=== PATIENT | male | born 1975 | race American Indian/Alaskan Native ===

== ENCOUNTER 2018-11-30 22:19 | Inpatient (IN) | payer MEDICAID ==
[~2018-11-30] VITALS: Ht 172.7 cm; Wt 95.0 kg
[~2018-11-30 22:19] MED LIST: ALBUAER3 IN; IPRIH INH
[2018-11-30] MEDS ORDERED: IPRATROPIUM BROM 0.5 MG/2.5ML INH SOL HHN ONE (22:45)
[2018-11-30] MEDS ORDERED: ALBUTEROL SULF 2.5 MG/0.5ML(0.5%) NEB SOLN HHN ONE (22:45)
[2018-11-30] MEDS ORDERED: methylPREDNISolone SOD SUCC 125 MG/2 ML VL IV ONE (22:45)
[2018-11-30 23:02] LABS: Basophils # (auto) 0.1 uL; Basophils % (auto) 0.6 % (0.0-2.0); Eosinophils # (auto) 0.5 uL; Eosinophils % (auto) 5.4 % (0.0-7.0); Hematocrit 45.4 % (41.0-53.0); Hemoglobin 16.1 g/dL (13.5-17.5); Lymphocytes # (auto) 2.7 uL; Lymphocytes % (auto) 29.6 % (10.0-50.0); Mean Corpuscular Hemoglobin 31.7 pg (28.0-32.0); Mean Corpuscular Hgb Conc. 35.6 g/dL (32.0-36.0); Monocytes # (auto) 0.7 uL; Neutrophils # (auto) 5.2 uL; Neutrophils % (auto) 56.4 % (37.0-80.0); Nucleated Red Blood Cells % 0.3 %; Platelet Count (auto) 241 10^3/uL (140-450); Red Cell Distribution Width 13.4 % (11.8-14.3); White Blood Cell 9.1 10^3/uL (4.4-10.8)
[2018-11-30 23:22] LABS: Albumin 3.6 g/dL (3.4-5.0); Calcium 8.6 mg/dL (8.5-10.1)
[2018-11-30 23:35] LABS: Bilirubin, Total 0.3 mg/dL (0.2-1.0)
[2018-12-01] VITALS (9 sets, daily range): BP systolic 106–149; BP diastolic 24–99
[2018-12-01] MEDS ORDERED: IPRATROPIUM BROM 0.5 MG/2.5ML INH SOL NEB ONE (00:15)
[2018-12-01] MEDS ORDERED: ALBUTEROL SULF 2.5 MG/0.5ML(0.5%) NEB SOLN NEB ONE (00:15)
[2018-12-01] MEDS ORDERED: MORPHINE SULF INJ 2 MG/ML SYRINGE 1ML IV PRN (02:45)
[2018-12-01] MEDS ORDERED: TEMAZEPAM 15 MG CAP PO PRN (02:45)
[2018-12-01] MEDS ORDERED: ACETAMINOPHEN 325 MG TAB PO PRN (02:45)
[2018-12-01] MEDS ORDERED: NITROGLYCERIN 0.4 MG SL TAB SL PRN (02:45)
[2018-12-01] MEDS ORDERED: ONDANSETRON HCL 4 MG/2 ML VIAL IV PRN (02:45)
[2018-12-01] MEDS: BUDESONIDE (INHALATION) 0.5 MG/2 ML NEB NEB SCH ×2 (06:54→18:46)
[2018-12-01] MEDS: ALBUTEROL SULF 2.5 MG/0.5ML(0.5%) NEB SOLN NEB SCH ×3 (06:54→18:47)
[2018-12-01] MEDS: IPRATROPIUM BROM 0.5 MG/2.5ML INH SOL NEB SCH ×3 (06:54→18:46)
--- NOTE | 2018-12-01 07:01 | NUR ---
PT TAKEN OFF BIPAP AFTER BREATHING TX. PLACED PT ON 2LNC, SPO2 97%. PT STATES HIS BREATHING IS "MUCH BETTER.". NO S/S OF RESPIRATORY DISTRESS. PT AWARE TO HAVE RT PAGED IF SOB OCCURS OR HE FEELS THE NEED TO GO ON BIPAP.
--- NOTE | 2018-12-01 07:35 | NUR ---
Opening Shift Note Assumed care of patient, awake and alert. No S/S of distress/SOB or pain. Patient currently on BiPAP FiO2 of 40%. Bed in lowest locked position, side rails up x2, call light within reach. Instructed on POC and to call for assist PRN, will continue to monitor for changes Q1hr and PRN.
--- NOTE | 2018-12-01 08:10 | NUR ---
[employer] Patient sets hardy Xie. Addendum: 12/02/18 at 1257 by LILLIAM BALLESTEROS RN RN Hardy Strong
[2018-12-01] MEDS ORDERED: methylPREDNISolone SOD SUCC 125 MG/2 ML VL IV SCH (10:00)
[2018-12-01] MEDS ORDERED: PNEUMOCOCCAL VACC POLYS 25 MCG/0.5 ML VIAL IM ONE (10:00)
[2018-12-01] MEDS: FAMOTIDINE 20 MG TAB PO SCH ×2 (10:33→22:43)
[2018-12-01] MEDS ORDERED: MORPHINE SULFATE 4 MG/ML SYR/VIAL IV ONE (14:00)
[2018-12-01] MEDS: methylPREDNISolone SOD SUCC 125 MG/2 ML VL IV SCH ×2 (15:25→22:00)
--- NOTE | 2018-12-01 19:45 | NUR ---
Assumed care of patient who is A&O x4. Currently on 2lpm via nc with expiratory wheezes throughout bilaterally. HOB elevated 45 degrees. Patient reports SOB, but "not as bad as yesterday". Patient is able to ambulate independently without the use of assistive devices. Bed is in low locked position with side rails up x2. Encouraged to call for assistance when needed. Will continue to monitor PRN.
--- NOTE | 2018-12-01 22:30 | NUR ---
Rounds Patient is resting in bed on left side. NC is off patient and lying in the bed. NC replaced, patient denies pain at this time. Scheduled medications administered as ordered. Encouraged to call for assistance when needed. Patient verbalizes understanding. WIll continue to monitor PRN.
[2018-12-01] MEDS: DOXYCYCLINE 100 MG TAB/CAP PO SCH (22:43)
--- NOTE | 2018-12-02 | NUR ---
Rounds Patient is sleeping in bed on left side. Bedside o2 in place at 2lpm. No distress noted. respirations are even, noted snoring. Will continue to monitor PRN.
[2018-12-02] MEDS: IPRATROPIUM BROM 0.5 MG/2.5ML INH SOL NEB SCH ×4 (00:12→19:13)
[2018-12-02] MEDS: ALBUTEROL SULF 2.5 MG/0.5ML(0.5%) NEB SOLN NEB SCH ×4 (00:12→19:13)
--- NOTE | 2018-12-02 02:12 | NUR ---
Rounds Patient is sleeping. NC in place O2 @ 2lpm. No distress noted. Patient continues to snore. Level of HOB increased. Will continue to monitor PRN.
--- NOTE | 2018-12-02 05:01 | NUR ---
Rounds Patient resting in bed with HOB elevated and eyes closed. Respirations are even and nonlabored. No distress noted. denies pain at this time. Will continue to monitor PRN.
[2018-12-02 05:15] VITALS: BP 151/83
[2018-12-02] MEDS: methylPREDNISolone SOD SUCC 125 MG/2 ML VL IV SCH ×3 (05:47→22:13)
[2018-12-02] MEDS: BUDESONIDE (INHALATION) 0.5 MG/2 ML NEB NEB SCH ×2 (05:49→19:14)
[2018-12-02 06:51] LABS: Basophils # (auto) 0 uL; Eosinophils # (auto) 0 uL; Hematocrit 49.3 % (41.0-53.0); Hemoglobin 16.6 g/dL (13.5-17.5); Lymphocytes # (auto) 0.7 uL; Lymphocytes % (auto) 3.6 % (10.0-50.0); Mean Corpuscular Hemoglobin 31.1 pg (28.0-32.0); Mean Corpuscular Hgb Conc. 33.7 g/dL (32.0-36.0); Mean Corpuscular Volume 92.2 fL (80.0-100.0); Monocytes # (auto) 0.4 uL; Monocytes % (auto) 2.1 % (0.0-12.0); Neutrophils # (auto) 17.3 uL; Neutrophils % (auto) 94.3 % (37.0-80.0); Nucleated Red Blood Cells % 0.2 %; Platelet Count (auto) 253 10^3/uL (140-450); Red Blood Cells 5.34 10^6/uL (4.5-5.90); Red Cell Distribution Width 13.7 % (11.8-14.3); White Blood Cell 18.4 10^3/uL (4.4-10.8)
[2018-12-02 07:02] LABS: Potassium 4.3 mmol/L (3.5-5.1)
[2018-12-02 07:07] LABS: BUN/Creatinine Ratio 17.2; Calcium 8.5 mg/dL (8.5-10.1)
--- NOTE | 2018-12-02 07:08 | NUR ---
Care endorsed to Day shift RN. Patient is stable with no s/s of distress at this time.
--- NOTE | 2018-12-02 07:55 | NUR ---
Opening Shift Note: Assumed care of patient, asleep in bed. HOB elevated. NC in place, 2 lpm. No S/S of distress/SOB or pain. Bed in lowest locked position, side rails up x2, call light within reach. Will continue to monitor for changes Q1hr and PRN.
[2018-12-02 09:00] VITALS: BP 144/93
[2018-12-02] MEDS: DOXYCYCLINE 100 MG TAB/CAP PO SCH ×2 (09:26→22:13)
[2018-12-02] MEDS: FAMOTIDINE 20 MG TAB PO SCH ×2 (09:26→22:13)
[2018-12-02 13:06] VITALS: BP 129/77
[2018-12-02 17:00] VITALS: BP 145/98
--- NOTE | 2018-12-02 19:30 | NUR ---
Opening Shift Note Assumed care of patient, awake and alert x4. Family member noted at the bedside. Patient denies pain at this time. Patient is on 3L NC, no S/S of distress noted at this time. Instructed on plan of care and to call for assistance as needed. Bed is locked in lowest position, side rails x 2 are up, and call light is within reach.
[2018-12-02 22:05] VITALS: BP 151/92
[2018-12-03] MEDS: IPRATROPIUM BROM 0.5 MG/2.5ML INH SOL NEB SCH ×4 (00:33→19:32)
[2018-12-03] MEDS: ALBUTEROL SULF 2.5 MG/0.5ML(0.5%) NEB SOLN NEB SCH ×4 (00:33→19:32)
--- NOTE | 2018-12-03 04:50 | NUR ---
RESPIRATORY THERAPIST PAGED RE: BREATHING TREATMENT Respiratory therapist paged regarding breathing.
[2018-12-03] MEDS: methylPREDNISolone SOD SUCC 125 MG/2 ML VL IV SCH (04:56)
--- NOTE | 2018-12-03 04:56 | NUR ---
RT AT BEDSIDE Respiratory therapist at bedside.
[2018-12-03 05:21] VITALS: BP 151/84
[2018-12-03 06:24] VITALS: BP 134/83
[2018-12-03 06:56] LABS: Basophils # (auto) 0 uL; Basophils % (auto) 0.1 % (0.0-2.0); Eosinophils # (auto) 0 uL; Hematocrit 48.1 % (41.0-53.0); Hemoglobin 16.3 g/dL (13.5-17.5); Lymphocytes # (auto) 1.1 uL; Lymphocytes % (auto) 5.1 % (10.0-50.0); Mean Corpuscular Hemoglobin 30.7 pg (28.0-32.0); Mean Corpuscular Hgb Conc. 33.9 g/dL (32.0-36.0); Mean Corpuscular Volume 90.6 fL (80.0-100.0); Monocytes # (auto) 0.4 uL; Neutrophils # (auto) 19.6 uL; Neutrophils % (auto) 92.8 % (37.0-80.0); Platelet Count (auto) 245 10^3/uL (140-450); Red Blood Cells 5.31 10^6/uL (4.5-5.90); Red Cell Distribution Width 13.5 % (11.8-14.3); White Blood Cell 21.1 10^3/uL (4.4-10.8)
--- NOTE | 2018-12-03 07:45 | NUR ---
Opening Shift Note: Assumed care of patient. Patient is sleeping, HOB 45 degrees, patient does not appear short of breath. NC 2LPM. Bed in lowest locked position, side rails up x2, call light within reach. Will discuss plan of care with patient, and answer any questions. Will continue to monitor patient Q1hr.
[2018-12-03 08:05] VITALS: BP 126/89
[2018-12-03] MEDS: DOXYCYCLINE 100 MG TAB/CAP PO SCH ×2 (09:52→21:34)
[2018-12-03] MEDS: FAMOTIDINE 20 MG TAB PO SCH ×2 (09:53→21:35)
[2018-12-03] MEDS: BUDESONIDE (INHALATION) 0.5 MG/2 ML NEB NEB SCH ×2 (10:30→19:33)
--- NOTE | 2018-12-03 12:15 | NUR ---
IV removal IV DC'd with clean sterile technique, catheter fully intact. Pressure dressing applied to site. Patient tolerated well. NOTE:
--- NOTE | 2018-12-03 12:20 | NUR ---
IV insertion IV access obtained, via clean sterile technique by inserting gauge catheter at after attempt(s). IV secured properly. No trauma to site. Patient tolerated well. NOTE:
[2018-12-03 12:30] VITALS: BP 136/88
[2018-12-03] MEDS: methylPREDNISolone SOD SUCC 40 MG/ML VL IV SCH ×2 (14:04→21:34)
[2018-12-03 17:16] VITALS: BP 148/68
--- NOTE | 2018-12-03 19:30 | NUR ---
Opening Shift Note Assumed care of patient, awake and alert oriented x4. No S/S of distress/SOB or pain noted. Bed is in lowest locked position with bed rails up x2 and call light is within reach of the patient. Instructed on POC and to call for assist PRN.
[2018-12-03 22:00] VITALS: BP 137/91
[2018-12-04] MEDS: ALBUTEROL SULF 2.5 MG/0.5ML(0.5%) NEB SOLN NEB SCH ×3 (00:57→12:28)
[2018-12-04] MEDS: IPRATROPIUM BROM 0.5 MG/2.5ML INH SOL NEB SCH ×3 (00:58→12:28)
--- NOTE | 2018-12-04 02:25 | NUR ---
RECEIVED CALL FOR ELEVATED HEART RATE: Received call from [employer] stating that patients heart rate went up to 139. Went to check on patient immediately and discovered patient in the bathroom coughing. Escorted patient back to bed and placed patient back on nasal cannula at 4 liters. Patient stated "I had a cough attack." Provided patient with some water to help with itch in patients throat from coughing. Patient is resting in bed, no s/s of distress noted. Vital signs taken, blood pressure 142/97, 18 respiratory rate, 94% oxygen saturation temperature 98.0 and heart rate 112.
[2018-12-04 02:47] VITALS: BP 137/91
[2018-12-04 05:27] VITALS: BP 116/88
[2018-12-04 06:12] LABS: Basophils # (auto) 0 uL; Basophils % (auto) 0.1 % (0.0-2.0); Eosinophils # (auto) 0 uL; Hematocrit 51.1 % (41.0-53.0); Hemoglobin 17.1 g/dL (13.5-17.5); Lymphocytes % (auto) 5.5 % (10.0-50.0); Mean Corpuscular Hemoglobin 30.5 pg (28.0-32.0); Mean Corpuscular Hgb Conc. 33.5 g/dL (32.0-36.0); Mean Corpuscular Volume 90.9 fL (80.0-100.0); Monocytes # (auto) 0.5 uL; Monocytes % (auto) 2.5 % (0.0-12.0); Neutrophils # (auto) 17.4 uL; Neutrophils % (auto) 91.9 % (37.0-80.0); Nucleated Red Blood Cells % 0.2 %; Platelet Count (auto) 277 10^3/uL (140-450); Red Blood Cells 5.62 10^6/uL (4.5-5.90); Red Cell Distribution Width 13.2 % (11.8-14.3); White Blood Cell 18.9 10^3/uL (4.4-10.8)
[2018-12-04] MEDS: BUDESONIDE (INHALATION) 0.5 MG/2 ML NEB NEB SCH (07:22)
--- NOTE | 2018-12-04 07:25 | NUR ---
Open Shift Note Received report on patient, awake and sitting up in bed. Patient shows no signs of distress at this time, states he is ready to go home. Discussed POC with patient and pending pulmonary consult, patient verbalized understanding. Bed in lowest locked position, side rails up x2 and call light within reach. Will continue to monitor.
[2018-12-04 07:30] VITALS: BP 136/81
[2018-12-04] MEDS: FAMOTIDINE 20 MG TAB PO SCH (09:40)
[2018-12-04] MEDS: DOXYCYCLINE 100 MG TAB/CAP PO SCH (09:40)
[2018-12-04] MEDS: methylPREDNISolone SOD SUCC 40 MG/ML VL IV SCH (09:40)
[2018-12-04 11:54] VITALS: BP 126/78
--- NOTE | 2018-12-04 12:07 | NUR ---
Nutrition Assessment Notes please see attached link for complete assessment Est. Needs ABW (82 kg): 5639-1560 kcal (23-25 kcal/kgBW), 82-90 gms pro (1.0-1.1 gms/kgBW). Will continue to monitor pertinent labs and reassess nutrient need prn Addendum: 12/04/18 at [address] Amended: Links added.
[2018-12-04] MEDS ORDERED: DOX100T PO (12:10)
[2018-12-04] MEDS ORDERED: FLUT250M2 INH (12:10)
[2018-12-04] MEDS ORDERED: PRED1PAK10 PO (12:13)
[2018-12-04 12:42] VITALS: BP 136/81
--- NOTE | 2018-12-04 13:22 | NUR ---
Endorsed Care and DC to RN Leny Endorsed care and discharge to [facility]. Patient shows no signs of distress at this time.
--- NOTE | 2018-12-04 13:30 | NUR ---
Discharge instructions given as ordered. Encourage to follow up with PMD as instructed. All questions and concerns addressed. Patient verbalized understanding. Medication reconciliation form completed and copy given to patient. Needed vaccines given. IV removed with catheter intact, pressure dressing applied. Telemetry unit returned to ICU. Patient taken to vehicle via wheelchair with all personal belongings, accompanied by staff and family member. No distress noted at time of departure.
== END 2018-12-04 13:30 | disposition home or self-care (01) | DRG 140 ==
LOC: ER 22:19 → EDBD 22:19 → TELE 22:20 → TELE-WESTW 12-01 04:52
PROVIDERS: ADMIT Nurse Practitioner; ATTEND Internal Medicine Nephrology
PROC: 5A09357 Assistance with Respiratory Ventilation, Less than 24 Consecutive Hours, Continuous Positive Airway Pressure (ICD-10-PCS; principal; 2018-11-30)
PROC: 5A09357 Assistance with Respiratory Ventilation, Less than 24 Consecutive Hours, Continuous Positive Airway Pressure (ICD-10-PCS; 2018-12-01)
DX: J44.0 Chronic obstructive pulmonary disease with (acute) lower respiratory infection (principal); J96.21 Acute and chronic respiratory failure with hypoxia; J44.1 Chronic obstructive pulmonary disease with (acute) exacerbation; E66.9 Obesity, unspecified; J20.9 Acute bronchitis, unspecified; T38.0X5A Adverse effect of glucocorticoids and synthetic analogues, initial encounter; Z72.0 Tobacco use; Z71.6 Tobacco abuse counseling; Z80.3 Family history of malignant neoplasm of breast; Z82.49 Family history of ischemic heart disease and other diseases of the circulatory system; Z91.19 Patient's noncompliance with other medical treatment and regimen; Y92.89 Other specified places as the place of occurrence of the external cause; Z68.31 Body mass index [BMI] 31.0-31.9, adult; Z88.0 Allergy status to penicillin; Z23 Encounter for immunization
CPT/HCPCS: 36415; 36600; 71045; 71250; 80048; 80053; 82805; 83880; 85025; 87081; 93005; 93306; 94640; 94660; 94761; 96374; 96375; G0378; J2405

== ENCOUNTER 2024-01-04 08:26 | Emergency (ER) | payer MEDICAID ==
[~2024-01-04] VITALS: Ht 175.3 cm; Wt 94.0 kg
[~2024-01-04 08:26] MED LIST changes: +DOX100T PO; +FLUT250M2 INH; +PRED1PAK10 PO
[2024-01-04 08:58] VITALS: BP 163/97; PULSE 103; RESP 18; TEMP 97.6; O2SAT 94
[2024-01-04] MEDS: KETOROLAC TROMETH 60MG/2ML VIAL IM ONE (09:10)
[2024-01-04] MEDS ORDERED: IBUP-1456 PO (09:30)
[2024-01-04] MEDS ORDERED: BACL10TA PO (09:30)
== END 2024-01-04 09:30 | disposition home or self-care (01) ==
LOC: ER 08:26
DX: S29.012A Strain of muscle and tendon of back wall of thorax, initial encounter (principal); J44.9 Chronic obstructive pulmonary disease, unspecified; Z87.891 Personal history of nicotine dependence; Z88.0 Allergy status to penicillin; X58.XXXA Exposure to other specified factors, initial encounter; Y93.89 Activity, other specified; Y92.89 Other specified places as the place of occurrence of the external cause; Y99.8 Other external cause status
CPT/HCPCS: 71046; 96372; 99283; J1885